=== PATIENT | male | born 1955 ===

== ENCOUNTER 2025-01-11 12:08 | Day surgery (SDC) | payer OTHER ==
[2025-01-07 11:30] VITALS: BP 128/81
[~2025-01-11] VITALS: Ht 180.3 cm; Wt 77.1 kg
[~2025-01-11 12:08] MED LIST: ARICEPT5 MG PO; TAMS0.4C PO; ZESTRIL20 MG PO
[2025-01-11] MEDS ORDERED: DIBUCAINE 30 GM TUBE RECTAL ONE (15:30)
[2025-01-11] MEDS ORDERED: BUPIVACAINE HCL 30 ML VIAL IJ ONE (15:30)
[2025-01-11] MEDS ORDERED: LIDOCAINE HCL 1%/EPINEPHRINE 20ML VIAL IJ ONE (15:30)
[2025-01-11] MEDS ORDERED: POVIDONE-IODINE 118 ML BOTT TOP ONE (15:30)
[2025-01-11] MEDS ORDERED: HEMOSTATIC MATRIX 1 KIT KIT TOP ONE (15:30)
[2025-01-11] MEDS ORDERED: COLACE100 MG PO (15:43)
[2025-01-11] MEDS ORDERED: TRAM1TAB98 PO (15:43)
[2025-01-11] MEDS ORDERED: METRONIDAZOLE/SODIUM CHLORIDE 500 MG/100 ML PIGGYBACK IV ONE (15:45)
[2025-01-11] MEDS ORDERED: CEFTRIAXONE SODIUM 2,000 MG VIAL IV ONE (15:45)
[2025-01-11] MEDS ORDERED: MORPHINE SULFATE 4 MG/ML VIAL IV ONE ×2 (20:30→21:00)
== END 2025-01-11 22:15 | disposition home or self-care (01) ==
LOC: CIR.AMB 12:08
PROVIDERS: ATTEND Surgery
DX: D01.3 Carcinoma in situ of anus and anal canal (principal); K64.1 Second degree hemorrhoids; A63.0 Anogenital (venereal) warts; K62.89 Other specified diseases of anus and rectum; Z88.8 Allergy status to other drugs, medicaments and biological substances